=== PATIENT | female | born 1960 | race Caucasian/White ===

== ENCOUNTER 2021-10-09 19:00 | Inpatient (IN) | payer BC, SELFPAY ==
--- NOTE | ~2021-10-09 | XR_ITS ---
EXAMINATION: XR chest 1V portable 10/09/2021 19:43 INDICATION: Dyspnea and weakness. COPD. PROCEDURE: AP portable chest COMPARISON: 03/31/2018 FINDINGS: The lungs are clear. The cardiomediastinal silhouette is within normal limits. There are no pleural effusions. There is no pneumothorax suspected. There is a healed left eighth rib fractur e. There are emphysematous changes. There is a right shoulder arthroplasty. IMPRESSION: 1: NO ACUTE CARDIOPULMONARY DISEASE. Reviewed, dictated and finalized at location A. GN DIRECTOR
--- NOTE | ~2021-10-09 | CT_ITS ---
EXAMINATION: CTA chest PE protocol DATE: 10/09/2021 20:51 HEAD WORKER INDICATION: Shortness of breath and weakness TECHNIQUE: Computed tomographic angiography (CTA) of the chest was performed with 100 mL Omnipaque-35 0 intravenous contrast. The dose-length product was 147.69 mGy-cm. Maximum intensity projection 3D-re constructions of the aorta and other arteries were constructed by the technologist on a separate work station. Automated exposure control and iterative reconstruction technique were employed. COMPARISON: CT dated 07/12/2017. FINDINGS: Study is technically adequate. There are small filling defects in right upper lobe segmenta l pulmonary arteries, small thrombus burden. No thoracic lymphadenopathy. No significant pleural or p ericardial effusion. Heart size normal. No evidence for aortic aneurysm or dissection. No significant pleural or pericardial effusion. There is severe emphysema. There is a 7 mm fissural nodule on the r ight. There are scattered areas of groundglass opacification of the lower lungs. No endobronchial les ions. There is mucous plugging and multiple peripheral bronchi of the right middle lobe. There is mil d superior endplate compression deformity of T12 and L1 with Schmorl's nodes, likely chronic findings . No acute osseous abnormality. IMPRESSION: 1. Filling defects in right upper lobe segmental pulmonary arteries consistent with pulmonary embolis m, small thrombus burden. 2: Scattered groundglass opacification of the lower lungs, most likely infectious/inflammatory. Muco us plugging noted in peripheral right middle lobe bronchi. 3: Fissural nodule of the right middle lobe measuring 7 mm, likely benign. Follow-up low dose CT ches t and 12 months recommended. 4: Severe emphysema. Reviewed, dictated and finalized at location A. WORKER IMPRESSION: 1. Filling defects in right upper lobe segmental pulmonary arteries consistent with pulmonary embolism, small thrombus burden. 2: Scattered groundglass opacification of the lower lungs, most likely infecti ous/inflammatory. Mucous plugging noted in peripheral right middle lobe bronchi . 3: Fissural nodule of the right middle lobe measuring 7 mm, likely benign. Foll ow-up low dose CT chest and 12 months recommended. 4: Severe emphysema.
[2021-10-09 19:14] VITALS: BP 139/88; PULSE 130; RESP 28; TEMP 37.7; O2SAT 94
--- NOTE | 2021-10-09 19:28 | ECG_ITS ---
Measurements Intervals [place] Rate: 122 P: 77 HI: 146 QRS: 65 QRSD: 88 T: 70 QT: 312 QTc: 446 Interpretive Statements SINUS TACHYCARDIA INCOMPLETE RIGHT BUNDLE BRANCH BLOCK BORDERLINE ST ABNORMALITY- INF/LAT LEADS ABNORMAL ECG Electronically Signed On 10-09-2021 20:28:38 CNA PER DIEM by Varghese Martinez D.O.
[2021-10-09 19:51] LABS: Base Excess ABG 0.6 mmol/L (0-2); HCO3 ABG 24.1 mmol/L (23-29); Oxygen Content ABG 20.8 %vol (16.0-22.0); Oxygen Saturation ABG 93.8 % (95-97); Oxyhemoglobin 91.3 % (94-100); PCO2 ABG 35.8 mmHg (35-45); PO2 ABG 63.7 mmHg (80-90); Total Hemoglobin 16.2 g/dL (12.0-18.0); pH ABG 7.45 (7.35-7.45)
[2021-10-09 19:53] LABS: Basophils Absolute Auto 0.05 K/mm3 (0.00-0.10); Basophils Percent Auto 0.3 % (0.0-1.0); Eosinophils Absolute Auto 0.08 K/mm3 (0.02-0.50); Eosinophils Percent Auto 0.5 % (1.0-6.0); Hematocrit 47.8 % (35.0-49.0); Hemoglobin 16.1 g/dL (12.0-15.0); Immature Granulocyte Absolute 0.09 K/mm3 (0.00-0.00); Immature Granulocyte Percent A 0.6 % (0.0-0.0); Lymphocytes Percent Auto 11.3 % (18.0-42.0); Mean Corpuscular HGB Conc 33.7 g/dL (32.0-36.0); Mean Corpuscular Hemoglobin 31.6 pg (27.0-31.0); Mean Corpuscular Volume 93.9 fL (78.0-102.0); Mean Platelet Volume 9.4 fl (9.2-11.8); Monocytes Absolute Auto 1.39 K/mm3 (0.10-0.90); Monocytes Percent Auto 9.2 % (2.0-11.0); Neutrophils Absolute Auto 11.8 K/mm3 (1.7-7.2); Neutrophils Percent Auto 78.1 % (50.0-70.0); Platelet Count Result 258 K/mm3 (150-420); Red Blood Count 5.09 M/mm3 (4.20-5.40); Red Cell Distribution Width 14.4 % (11.6-14.4); White Blood Count 15.1 K/mm3 (4.8-10.8)
[2021-10-09 20:04] LABS: Device ROOM AIR; Modified Allen's Test Pass; Site Drawn LEFT RADIAL
[2021-10-09] MEDS: SODIUM CHLORIDE 0.9% IV 1,000 ML 999 ML IV CONT (20:20)
[2021-10-09 20:22] LABS: D Dimer 0.84 mg/L (0.19-0.50)
[2021-10-09 20:23] LABS: Alanine Aminotransferase 15 U/L (14-59); Albumin Level 3.8 g/dL (3.4-5.0); Alkaline Phosphatase 143 U/L (46-116); Anion Gap 10 mmol/L (8-16); Aspartate Amino Transferase 14 U/L (15-37); Bilirubin,Total 0.7 mg/dL (0.00-1.00); Blood Urea Nitrogen 8 mg/dL (7-18); Calcium 9.1 mg/dL (8.5-10.1); Carbon Dioxide 26 mmol/L (21-32); Chloride 103 mmol/L (98-108); Estimated Glomerular Filt Rate > 60; Glucose 114 mg/dL (70-99); NT Pro B Type Natriuretic Pept 100 pg/mL (0-125); Osmolality Calculated 287 mOsm/kg (285-295); Potassium 3.7 mmol/L (3.5-5.1); Sodium 139 mmol/L (136-145); Total Protein 7.6 g/dL (6.4-8.2); Troponin I 4.8 ng/L (0.00-60.4)
[2021-10-09 20:34] LABS: Influenza A QL RT-PCR Negative (Negative); Influenza B QL RT-PCR Negative (Negative); SARS-CoV-2 RNA PCR Negative (Negative)
[2021-10-09] MEDS: IPRATROPIUM 0.5 MG/ALBUTEROL SULFATE 2.5 MG AMPUL.NEB 3 ML INHALATION (21:00)
--- NOTE | 2021-10-09 21:04 | ED.URI ---
HPI - URI/Sore Throat General Chief Complaint: Upper Respiratory Infection Stated Complaint: body aches, cough, congestion Source: patient Mode of arrival: ambulatory Limitations: no limitations History of Present Illness HPI Narrative: this is a 60-year-old female with a history of COPD presents with some dyspnea shortness of breath with cough no fever has been having shortness of breath over the past few days and getting worse patient has a low-grade temperature of 100 with some heart rate in the 1 teens to 130s, with no nausea vomiting cough is nonproductive patient is a long-time tobacco abuser with no chest pain no belly pain no dysuria no flank pain. MD elicited complaint: cough and other ( dyspnea) Onset (ago): day(s) Consistency: constant Severity: moderate Description of mucous: clear Related Data Home Medications Medication Instructions Recorded Confirmed albuterol sulfate [Ventolin HFA] 2 inh INHALATION DIRECTED 10/09/21 10/09/21 budesonide-formoterol [Symbicort] 1 inh INHALATION BID 10/09/21 10/09/21 [id number] 1 ea INHALATION DAILY 10/09/21 10/09/21 [Trelegy Ellipta] gabapentin 300 mg PO TID 10/09/21 10/09/21 naproxen 500 mg PO DAILY 10/09/21 10/09/21 ropinirole 0.5 mg PO DAILY 10/09/21 10/09/21 venlafaxine 75 mg PO BID 10/09/21 10/09/21 Allergies Allergy/AdvReac Type Severity Reaction Status Date / Time acetaminophen Allergy Intermediate Hives Verified 10/09/21 19:35 [Tylenol-Codeine] codeine [Tylenol-Codeine] Allergy Intermediate Hives Verified 10/09/21 19:35 Review of Systems Review of Systems: All systems reviewed & are unremarkable except as noted in HPI and below PMFSH Past Medical History Medical History COPD (chronic obstructive pulmonary disease) Exam Const: General: no acute distress Orientation/consciousness: patient oriented x3 HENMT: Head: normal to inspection Eyes: Conjunctivae: conjunctivae normal Pupils: Equal, round and reactive pupils present Neck: Neck: normal visual inspection and no lymphadenopathy Chest: Chest palpation & inspection: normal inspection of the chest Resp: Effort & Inspection: normal respiratory effort Auscultation: diminished lung sounds Cardio: Rate: regular rate Rhythm: regular rhythm GI: GI Palp: Yes Soft to palpation : General: Yes no CVA tenderness Urinary Catheter: Urinary Catheter: patent and draining Skin: General skin exam: normal color Rashes: no rashes Neuro: General: patient oriented x3 and moves all extremities Psych: Mental Status: mental status grossly normal Affect: normal affect Course Course Emergency Course: patient here with some shortness of breath x-ray reviewed with patient patient had an elevated D-dimer and CTA was performed [facility] shows no P, labs reviewed with patient x-ray shows some hyperinflation and patient received DuoNebs and IV Solu-Medrol and a g of Rocephin and will admit. Vital Signs Vital signs: Vital Signs Temperature 37.7 C H 10/09/21 19:14 Pulse Rate 130 H 10/09/21 19:14 Respiratory Rate 28 H 10/09/21 19:14 Blood Pressure 139/88 10/09/21 19:14 Pulse Oximetry 94 10/09/21 19:14 Temperature 37.7 C H 10/09/21 19:14 Pulse Rate 130 H 10/09/21 19:14 Respiratory Rate 28 H 10/09/21 19:14 Blood Pressure 139/88 10/09/21 19:14 Pulse Oximetry 94 10/09/21 19:14 MDM - URI/Sore Throat Lab Data Result diagrams: 10/09/21 19:48 10/09/21 19:48 Labs: Lab Results 10/09/21 10/09/21 10/09/21 Range/Units 19:48 19:48 19:48 WBC (4.8-10.8) K/mm3 RBC (4.20-5.40) M/mm3 Hgb (12.0-15.0) g/dL Hct (35.0-49.0) % MCV (78.0-102.0) fL MCH (27.0-31.0) pg MCHC (32.0-36.0) g/dL RDW (11.6-14.4) % Plt Count (150-420) K/mm3 MPV (9.2-11.8) fl Immature Gran % (Auto) (0.0-0.0) % Neut % (Auto) (50.0-70.0) % Lymph % (
[2021-10-09] MEDS: methylPREDNISolone SOD SUCC 125 MG VIAL IV PUSH (21:06)
[2021-10-09 21:09] VITALS: PULSE 102; RESP 20; O2SAT 96
[2021-10-09 21:59] VITALS: BP 147/81; PULSE 114; RESP 22; TEMP 36.9; O2SAT 97
[2021-10-09 22:00] VITALS: O2SAT 96
[2021-10-09] MEDS: SODIUM CHLORIDE 0.9% IV 1,000 ML 100 ML IV CONT (22:04)
[2021-10-09] MEDS: ENOXAPARIN 30 MG/0.3 ML SYRINGE SUB-Q (22:12)
[2021-10-09] MEDS: VENLAFAXINE HCL 75 MG TABLET PO (22:12)
[2021-10-09] MEDS: GABAPENTIN 300 MG CAPSULE PO (22:12)
[2021-10-09 22:29] VITALS: BP 131/68; PULSE 102; RESP 20; TEMP 36.4; O2SAT 96
[2021-10-09 22:42] VITALS: BMI 20.5
[2021-10-10] VITALS (8 sets, daily range): BP systolic 112–134; BP diastolic 66–73; PULSE 88–102; RESP 16–20; TEMP 36.4–36.6; O2SAT 92–99
[2021-10-10] MEDS: methylPREDNISolone SOD SUCC 40 MG VIAL IV PUSH ×2 (00:02→05:45)
[2021-10-10] MEDS: IPRATROPIUM 0.5 MG/ALBUTEROL SULFATE 2.5 MG AMPUL.NEB 3 ML INHALATION ×2 (00:02→05:37)
[2021-10-10 05:43] LABS: Basophils Absolute Auto 0.01 K/mm3 (0.00-0.10); Basophils Percent Auto 0.1 % (0.0-1.0); Hemoglobin 14.4 g/dL (12.0-15.0); Immature Granulocyte Absolute 0.07 K/mm3 (0.00-0.00); Immature Granulocyte Percent A 0.6 % (0.0-0.0); Lymphocytes Absolute Auto 0.73 K/mm3 (1.10-4.50); Lymphocytes Percent Auto 6.6 % (18.0-42.0); Mean Corpuscular Hemoglobin 30.6 pg (27.0-31.0); Mean Corpuscular Volume 95.7 fL (78.0-102.0); Mean Platelet Volume 9.7 fl (9.2-11.8); Monocytes Absolute Auto 0.12 K/mm3 (0.10-0.90); Monocytes Percent Auto 1.1 % (2.0-11.0); Neutrophils Absolute Auto 10.2 K/mm3 (1.7-7.2); Neutrophils Percent Auto 91.6 % (50.0-70.0); Platelet Count Result 233 K/mm3 (150-420); Red Cell Distribution Width 14.6 % (11.6-14.4); White Blood Count 11.1 K/mm3 (4.8-10.8)
[2021-10-10] MEDS: GABAPENTIN 300 MG CAPSULE PO (05:45)
[2021-10-10 05:59] LABS: Alanine Aminotransferase 14 U/L (14-59); Albumin Level 3.2 g/dL (3.4-5.0); Alkaline Phosphatase 132 U/L (46-116); Anion Gap 10 mmol/L (8-16); Aspartate Amino Transferase 12 U/L (15-37); Bilirubin,Total 0.3 mg/dL (0.00-1.00); Blood Urea Nitrogen 10 mg/dL (7-18); Calcium 8.5 mg/dL (8.5-10.1); Carbon Dioxide 27 mmol/L (21-32); Chloride 105 mmol/L (98-108); Estimated CRCL calculation 46 ml/min; Estimated Glomerular Filt Rate > 60; Glucose 164 mg/dL (70-99); Osmolality Calculated 297 mOsm/kg (285-295); Potassium 3.8 mmol/L (3.5-5.1); Sodium 142 mmol/L (136-145); Total Protein 6.3 g/dL (6.4-8.2)
[2021-10-10] MEDS: NICOTINE (*PBKC) 21 MG PATCH 1 PATCH TRANSDERM (07:54)
[2021-10-10] MEDS: NAPROXEN 250 MG TABLET 500 MG PO (08:11)
[2021-10-10] MEDS: rOPINIRole HCL 0.5 MG TABLET PO (08:11)
[2021-10-10] MEDS: VENLAFAXINE HCL 75 MG TABLET PO (08:11)
[2021-10-10] MEDS: ENOXAPARIN 60 MG/0.6 ML SYRINGE 50 MG SUB-Q (08:58)
[2021-10-10] MEDS: FLUTICASONE/UMECLIDIN/VILANTER 100-62.5-25 MCG ELLIPTA 1 PUFF INHALATION (09:08)
--- NOTE | 2021-10-10 09:19 | PM.SD2 ---
Same Day Admit/Disch: HPI History of Present Illness Chief complaint: COPD exacerbation Narrative: Pippa Webb is a 60 year old female that presented to MR department with complaints of shortness of breath, cough and postnasal dripping. Patient has a past medical history of COPD patient notes for the last couple of days she has experienced coughing that is nonproductive along with postnasal dripping and congestion and shortness of breath. Patient notes that her shortness became so bad that she had to come to our emergency department. Patient notes that her condition has improved since her admission she is on room air satting in the lower 90s which is her baseline. Patient does not use. WBCs 11 hemoglobin 14.4 hematocrit 25 platelets 233 sodium 142 potassium 3.8 BUN 10 creatinine 0.85 glucose 164 lactic acid 1.0 AST 14 ALT 15 troponin 4.8 BNP 100 D-dimer 0.84 CTA indicates PE also pneumonia with mucous plugging severe emphysema, EKG sinus tach with a heart rate of 122, vital signs 98, 88, 18, 92% on room air ,134/66. Patient will discharge and be treated for a PE along with pneumonia FORMERLY [facility], [facility]–1983 Past Medical History Medical History COPD (chronic obstructive pulmonary disease) Social History Social History Smoking packs per day: 0.5 Smoking cigarettes per day: 10.0 Smoking status: Current every day smoker Tobacco type: cigarettes Second hand tobacco smoke exposure: Yes Alcohol intake: never Substance use: never Spiritual care concerns: No Same Day Admit/Disch: Med Pre-admit Medications Home Medications Medication Instructions Recorded Confirmed Type Sony Joyashonna 1 ea INHALATION DAILY 10/09/21 10/09/21 History albuterol sulfate [Ventolin HFA] 2 inh INHALATION DIRECTED 10/09/21 10/09/21 History budesonide-formoterol [Symbicort] 1 inh INHALATION BID 10/09/21 10/09/21 History gabapentin 300 mg PO TID 10/09/21 10/09/21 History naproxen 500 mg PO DAILY 10/09/21 10/09/21 History ropinirole 0.5 mg PO DAILY 10/09/21 10/09/21 History venlafaxine 75 mg PO BID 10/09/21 10/09/21 History apixaban [Eliquis] 5 mg PO BID #90 tablet 10/10/21 Rx azithromycin 500 mg PO DAILY 10 Days #10 tablet 10/10/21 Rx benzonatate 200 mg PO BID PRN #90 cap 10/10/21 Rx cefdinir 300 mg PO Q12H 10 Days #20 cap 10/10/21 Rx fluticasone propionate [Flonase 1 spray INTRANASAL BID #16 g 10/10/21 Rx Allergy Relief] guaifenesin 400 mg PO QID 21 Days #84 tablet 10/10/21 Rx methylprednisolone [Methylpred DP] 4 mg PO DAILY #21 ea 10/10/21 Rx Exam Narrative: GENERAL: This is a well-nourished, well-developed patient, in no apparent distress. HEAD: normocephalic, atraumatic. EYES: PERRL. Sclera clear/white. Vision is grossly intact. EARS: External ears normal, auditory canals clear and without drainage, TMs normal without perforation. Hearing grossly intact. NOSE: External nose normal with no obvious nasal discharge, nares without redness, no rhinorrhea. THROAT: Mucous membranes moist, posterior pharynx clear. NECK: Neck supple, non-tender without lymphadenopathy, masses or thyromegaly. CARDIOVASCULAR: Regular rate and rhythm without murmurs, gallops, or rubs. RESPIRATORY: Clear to auscultation. Breath sounds equal bilaterally. No wheezes, rales, or rhonchi. GASTROINTESTINAL: Abdomen soft, non-tender, nondistended. Bowel sounds are active. No hepato-splenomegaly, or palpable masses. No guarding. SKIN: warm, intact with no suspicious lesions or rash, good texture and turgor. NEURO: awake, alert, and oriented to person, place and time. There were no obvious focal neurologic abnormalities. Steady gait EXTREMITIES: Normal range of motion. No edema. No calf tenderness. Negative Homans sign bilaterally. BACK: Nontender without deformity or crepitance. No flank tenderness. DS: Data Data Completed and Pending Labs on day of discharge: Labs from
--- NOTE | 2021-10-10 12:31 | PC.NURSE ---
1130 patient dc to . instructions went over. both her and vocalize an understanding. dc to personal auto.
--- NOTE | 2021-10-14 14:13 | PC.NURSE ---
Pt states she received and understood her discharge instructions. Pt has no other comments.
== END 2021-10-10 11:30 | disposition home or self-care (01) | DRG 190 ==
LOC: CHSED 21:07 → CHS2ND 21:32
PROVIDERS: Admitting Provider Emergency Medicine; Emergency Provider Emergency Medicine; PCP Family Medicine; Visit Provider Emergency Medicine
DX: J44.0 Chronic obstructive pulmonary disease with (acute) lower respiratory infection (principal); Z20.822 Contact with and (suspected) exposure to COVID-19; I26.99 Other pulmonary embolism without acute cor pulmonale; J18.9 Pneumonia, unspecified organism; F17.210 Nicotine dependence, cigarettes, uncomplicated
CPT/HCPCS: 36415; 36600; 71045; 71275; 80053; 82805; 83605; 83880; 84484; 85025; 85380; 87040; 87081; 87502; 87880; 93005; 94640; 96361; 96374; 99285; A9270; C9803; J0456; J0696; J1650; J2920; J2930; J7030; Q9967; U0003; U0005

== ENCOUNTER 2021-12-11 00:40 | Emergency (ER) | payer BC, SELFPAY ==
[2021-12-11 00:43] VITALS: PULSE 89; RESP 20; TEMP 36.7; O2SAT 95
--- NOTE | 2021-12-11 00:43 | ED.GENADULT ---
HPI - General Adult General Chief complaint: Unspecified Stated complaint: Lump on left arm Time Seen by Provider: 12/11/21 00:43 Source: patient and RN notes reviewed Mode of arrival: ambulatory Limitations: no limitations History of Present Illness HPI narrative: Patient had her 1st COVID vaccination in her left arm this morning. Then she had a knot in her left shoulder at the the injection site. Then she began having swelling under her left arm in the axilla which was also painful. She called her doctor's office but they did not have a good explanation for. complaint: pain and swelling in left axilla Onset (ago): hour(s) (12) Location: upper extremity ( left axilla) Radiation: non-radiation Quality: aching, dull and constant Pain Consistency: constant Relieving factors: none Exacerbating factors: movement ( Left arm) Associated symptoms: denies other symptoms Treatments prior to arrival: none Related Data Home Medications Medication Instructions Recorded Confirmed Trelegy Ellipta 1 ea INHALATION DAILY 10/09/21 12/11/21 albuterol sulfate [Ventolin HFA] 2 inh INHALATION DIRECTED 10/09/21 12/11/21 budesonide-formoterol [Symbicort] 1 inh INHALATION BID 10/09/21 12/11/21 gabapentin 300 mg PO TID 10/09/21 12/11/21 naproxen 500 mg PO DAILY 10/09/21 12/11/21 ropinirole 0.5 mg PO DAILY 10/09/21 12/11/21 venlafaxine 75 mg PO BID 10/09/21 12/11/21 Allergies Allergy/AdvReac Type Severity Reaction Status Date / Time acetaminophen Allergy Intermediate Hives Verified 10/09/21 19:35 [Tylenol-Codeine] codeine [Tylenol-Codeine] Allergy Intermediate Hives Verified 10/09/21 19:35 Review of Systems Review of Systems: All systems reviewed & are unremarkable except as noted in HPI and below PMFSH Past Medical History Medical History (Updated 12/11/21 @ 00:56 by Tima Cerda MD) COPD (chronic obstructive pulmonary disease) Pulmonary emboli Surgical History Surgical History (Updated 12/11/21 @ 00:55 by Tima Cerda MD) H/O shoulder replacement right Social History Social History Smoking packs per day: 0.5 Smoking cigarettes per day: 10.0 Smoking status: Current every day smoker Tobacco type: cigarettes Second hand tobacco smoke exposure: Yes Alcohol intake: never Substance use: never Spiritual care concerns: No Exam Const: General: healthy appearing and no acute distress Nutritional Appearance: well nourished Orientation/consciousness: patient oriented x3 HENMT: Head: normal to inspection Ears: external ears normal Eyes: Conjunctivae: conjunctivae normal Pupils: Equal, round and reactive pupils present EOM: EOMs intact bilaterally Neck: Neck: normal visual inspection Resp: Effort & Inspection: normal respiratory effort Auscultation: clear to auscultation bilaterally Cardio: Rate: regular rate Rhythm: regular rhythm GI: GI Palp: Yes Soft to palpation and No Tenderness to palpation present (GI) Auscultation: normal bowel sounds Back/Spine/Pelvis: Cervical Spine: cervical ROM normal Thoracic/Lumbar Spine: thoraco-lumbar ROM normal Skin: General skin exam: normal color, no rashes or lesions noted and turgor normal Other: Swelling noted under the left axilla with tender lymphadenopathy. Lymph node is freely mobile soft no overlying erythema. Neuro: General: patient oriented x3, moves all extremities, no meningeal signs, no focal motor deficits and CN's II-XI intact bilaterally Speech: normal speech Gait exam (Neuro): Normal gait present Extrem: General: normal to inspection and no clubbing, cyanosis or edema Psych: Appearance: grossly normal and well kempt Mental Status: mental status grossly normal Affect: normal affect Attitude: cooperative Thought content: Yes Normal thought content present Course Vital Signs Vital signs: Vital Signs Temperature 36.7 C 12/11/21 00:43 Pulse Rate 89 12/11/21 00:4
[2021-12-11] MEDS: IBUPROFEN 600 MG TABLET (00:50)
[2021-12-11 01:04] VITALS: PULSE 80; RESP 18; TEMP 36.6; O2SAT 95
== END 2021-12-11 01:05 | disposition home or self-care (01) ==
PROVIDERS: Emergency Provider Emergency Medicine
DX: I88.9 Nonspecific lymphadenitis, unspecified (principal)
CPT/HCPCS: 99282; A9270

== ENCOUNTER 2022-04-07 13:07 | Emergency (ER) | payer BC, SELFPAY ==
[2022-04-07 13:40] VITALS: BP 157/84; PULSE 94; RESP 18; TEMP 37.1; O2SAT 94
--- NOTE | 2022-04-07 14:44 | ED.GENADULT ---
HPI - General Adult General Chief complaint: Skin/Abscess/Foreign Body Stated complaint: RASH HEAD UPPER EXTREMITIES Time Seen by Provider: 04/07/22 14:44 History of Present Illness HPI narrative: The patient is a 61-year-old woman with history of COPD, pneumonia, pulmonary embolus. She has pets at home but no fleas. For the last 3 days, the patient has had a rash on both forearms, worse on the right, with different areas that are itchy with redness around them. No vesicles. She does not believe that she has been bit by mosquitoes. She has applied hydrocortisone cream and calamine lotion to those areas. She also has itchiness in the scalp region. No itching the torso or lower extremities or face. The rash on both forearms is itchy. She has not taken any oral medications for the rash. No difficulty breathing. No fevers or chills or diaphoresis. No cough rhinorrhea or nasal congestion. No nausea vomiting or abdominal pain or urinary symptoms. No previous similar rash. No bedbugs at the present time but she has had those in the past. Related Data Home Medications Medication Instructions Recorded Confirmed albuterol sulfate 90 mcg/actuation 2 inh inhalation DIRECTED 10/09/21 12/11/21 aerosol inhaler (Ventolin HFA) budesonide-formoterol HFA 160 1 inh inhalation BID 10/09/21 12/11/21 mcg-4.5 mcg/actuation aerosol inhaler (Symbicort) fluticasone fur. 100 mcg-umeclid 1 ea inhalation DAILY 10/09/21 12/11/21 62.5 mcg-vilant 25 mcg inhalat.powder (Trelegy Ellipta) gabapentin 300 mg capsule 300 mg PO TID 10/09/21 12/11/21 naproxen 500 mg tablet 500 mg PO DAILY 10/09/21 12/11/21 ropinirole 0.5 mg tablet 0.5 mg PO DAILY 10/09/21 12/11/21 venlafaxine 75 mg tablet 75 mg PO BID 10/09/21 12/11/21 Allergies Allergy/AdvReac Type Severity Reaction Status Date / Time acetaminophen Allergy Intermediate Hives Verified 10/09/21 19:35 [Tylenol-Codeine] codeine [Tylenol-Codeine] Allergy Intermediate Hives Verified 12/16/21 19:35 Review of Systems Review of Systems: All systems reviewed & are unremarkable except as noted in HPI and below Constitutional: Constitutional: Reports no additional constitutional complaints, Denies anorexia, Denies body ache(s), Denies chills, Denies excessive sweating, Denies fatigue, Denies fever(s), Denies frequent falls, Denies headache(s), Denies malaise and Denies poor appetite Eyes: Eyes: Reports no additional eye complaints, Denies blurry vision, Denies change in vision, Denies irritation, Denies itchy eyes and Denies photophobia ENT: Reports system reviewed and no additional complaints, except as documented, Reports Normal hearing present, Denies change in voice, Denies dysphagia, Denies vertigo, Denies dizziness, Denies ear discharge, Denies headache(s), Denies hearing loss, Denies hoarseness, Denies nasal congestion, Denies neck pain, Denies sinus pressure, Denies sore throat and Denies throat swelling Cardiovascular: Cardiovascular: Reports no additional cardiovascular complaints, Denies chest pain, Denies syncope, Denies rapid heart rate, Denies irregular heart rhythm, Denies leg edema, Denies dyspnea and Denies slow heart rate Respiratory: Respiratory: Reports no additional respiratory complaints, Denies cough, Denies dyspnea, Denies stridor and Denies wheezing Gastrointestinal: Gastrointestinal: Reports no additional gastrointestinal complaints, Denies abdominal pain, Denies melena, Denies hematochezia, Denies dysphagia, Denies diarrhea, Denies nausea and Denies vomiting Genitourinary: Genitourinary: Denies hematuria, Denies urinary frequency, Denies dysuria, Denies flank pain and Denies urinary urgency Musculoskeletal: Musculoskeletal: Reports no additional musculoskeletal complaints, Denies abnormal gait, Denies back pain, Denies myalgias, Denies arthralgias, Denies joint swelling, Denies limited range of motion, Denies muscle cramps, Denies muscle weakness, Denies neck pain an
[2022-04-07] MEDS: ACETAMINOPHEN 325 MG TABLET 650 MG PO (14:50)
[2022-04-07] MEDS: CEPHALEXIN 500 MG CAPSULE PO (14:50)
[2022-04-07] MEDS: hydrOXYzine HCL 25 MG TABLET 50 MG PO (14:51)
[2022-04-07] MEDS: predniSONE 20 MG TABLET 60 MG PO (14:51)
[2022-04-07 15:15] VITALS: BP 156/84; PULSE 91; RESP 18; TEMP 36.9; O2SAT 94
== END 2022-04-07 15:18 | disposition home or self-care (01) ==
PROVIDERS: Emergency Provider Emergency Medicine; PCP Family Medicine
DX: L30.9 Dermatitis, unspecified (principal)
CPT/HCPCS: 99283; A9270; J7512

== ENCOUNTER 2022-06-25 01:23 | Emergency (ER) | payer BC, SELFPAY ==
--- NOTE | ~2022-06-25 | XR_ITS ---
EXAMINATION: XR foot RT 2V DATE: 06/25/2022 01:41 INDICATION: Right second toe injury. TECHNIQUE: 2 views of right foot were obtained. COMPARISON: None. FINDINGS: Bone alignment is normal. There is a fracture of dorsal base of second distal phalanx with less than 1 mm displacement. There are old healed fractures of the diaphyses of second and third prox imal phalanges and third metatarsal. 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 There is an enthesophyte at posterior aspect of calcaneal tuberosity. IMPRESSION: 1. Fracture of dorsal base of second distal phalanx. Reviewed, dictated and finalized at location A.
[2022-06-25 01:35] VITALS: BP 138/86; PULSE 82; RESP 16; TEMP 36.6; O2SAT 97
--- NOTE | 2022-06-25 02:05 | ED.LOWEXIN ---
HPI - Extremity Injury (Lower) General Chief Complaint: Extremity Injury, Lower Stated Complaint: Toe pain Source: patient and RN notes reviewed Mode of arrival: ambulatory Limitations: no limitations History of Present Illness HPI Narrative: Patient states that she slipped on the carpet consequently striking some piece of furniture in her house. Now it is swollen on the distal 2nd right toe with bruising. complaint: foot injury Onset (ago): day(s) (1) Injury: Right: toes (2nd) Type of Injury: blunt Place: home Severity: moderate Relieving factors: nothing Exacerbating factors: movement and palpation Context: direct blow Associated symptoms: snap/pop sensation, swelling and ambulatory Other symptoms: none Related Data Home Medications Medication Instructions Recorded Confirmed albuterol sulfate 90 mcg/actuation 2 inh inhalation DIRECTED 10/09/21 06/25/22 aerosol inhaler (Ventolin HFA) budesonide-formoterol HFA 160 1 inh inhalation BID 10/09/21 06/25/22 mcg-4.5 mcg/actuation aerosol inhaler (Symbicort) fluticasone fur. 100 mcg-umeclid 1 ea inhalation DAILY 10/09/21 06/25/22 62.5 mcg-vilant 25 mcg inhalat.powder (Trelegy Ellipta) naproxen 500 mg tablet 500 mg PO DAILY 10/09/21 06/25/22 ropinirole 0.5 mg tablet 0.5 mg PO DAILY 10/09/21 06/25/22 venlafaxine 75 mg tablet 75 mg PO BID 10/09/21 06/25/22 gabapentin 300 mg capsule 300 mg PO DAILY 06/25/22 06/25/22 Allergies Allergy/AdvReac Type Severity Reaction Status Date / Time acetaminophen Allergy Intermediate Hives Verified 10/09/21 19:35 [Tylenol-Codeine] codeine [Tylenol-Codeine] Allergy Intermediate Hives Verified 10/09/21 19:35 Review of Systems Review of Systems: All systems reviewed & are unremarkable except as noted in HPI and below PMFSH Past Medical History Medical History (Updated 06/25/22 @ 02:10 by Tima Cerda MD) COPD (chronic obstructive pulmonary disease) Pulmonary emboli Restless legs syndrome Surgical History Surgical History H/O shoulder replacement right Social History Social History Smoking packs per day: 0.5 Smoking cigarettes per day: 10.0 Smoking status: Current every day smoker Tobacco type: cigarettes Second hand tobacco smoke exposure: Yes Alcohol intake: never Substance use: never Spiritual care concerns: No Exam Const: General: healthy appearing, no acute distress and alert Nutritional Appearance: well nourished Orientation/consciousness: patient oriented x3 Limitations: no limitations HENMT: Head: normal to inspection Ears: external ears normal Face and sinus: normal facial exam Eyes: Conjunctivae: conjunctivae normal Pupils: Equal, round and reactive pupils present EOM: EOMs intact bilaterally Neck: Neck: normal visual inspection Resp: Effort & Inspection: normal respiratory effort Auscultation: clear to auscultation bilaterally Cardio: Rate: regular rate Rhythm: regular rhythm GI: GI Palp: Yes Soft to palpation and No Tenderness to palpation present (GI) Auscultation: normal bowel sounds Back/Spine/Pelvis: Cervical Spine: cervical ROM normal Thoracic/Lumbar Spine: thoraco-lumbar ROM normal Skin: General skin exam: normal color Rashes: no rashes Neuro: General: patient oriented x3, moves all extremities, no focal motor deficits and CN's II-XI intact bilaterally Speech: normal speech Gait exam (Neuro): Normal gait present Extrem: General: normal exam except as noted Left lower extremity: foot Details: tenderness Location: of another digit Location: the 2nd digit and at the distal phalanx, abnormal ROM of toe Details: pain with active ROM Location: of the 2nd digit and pain with passive ROM of the 2nd digit, ecchymosis dorsal 2nd toe single and vascular exam Details: normal capillary refill Psych: Mental Status: mental status grossly normal Affect:
[2022-06-25 02:19] VITALS: BP 133/81; PULSE 68; RESP 16; O2SAT 96
== END 2022-06-25 02:20 | disposition home or self-care (01) ==
PROVIDERS: Emergency Provider Emergency Medicine; PCP Family Medicine
DX: S92.534A Nondisplaced fracture of distal phalanx of right lesser toe(s), initial encounter for closed fracture (principal); W22.03XA Walked into furniture, initial encounter
CPT/HCPCS: 73620; 99284

== ENCOUNTER 2022-07-21 15:09 | Outpatient (CLI) | payer BC, SELFPAY ==
--- NOTE | ~2022-07-21 | XR_ITS ---
EXAMINATION: XR lumbar spine 2-3V, XR sacroiliac joints min 3V DATE: 07/21/2022 15:34 INDICATION: Right-sided sciatica TECHNIQUE: 1. Anteroposterior and lateral views of the lumbar spine, and cone-down lateral view of the lumbosacr al junction were obtained. 2. AP and left and right oblique views of the sacroiliac joints were obtained. COMPARISON: None. FINDINGS: Negligible lower lumbar levocurvature. Sagittal alignment is normal. Compression fracture with mild r ight-sided disc height loss at T11. Lumbar vertebral body heights are normal. Moderate to severe righ t-sided predominant disc height loss at L4-L5. Moderate disc height loss at L3-L4. Mild disc height l oss at L2-L3, L5-S1 and diffuse glandular thoracic levels.. Sacral arches are intact. Mild osteoarthr itis of the bilateral sacroiliac joints. No subarticular sclerosis or erosions to suggest inflammator y sacroiliitis. Visualized portions of the bilateral hip joint spaces are normal. Atherosclerotic abd ominal aorta. Visualized lung bases are clear. Heart size is normal. IMPRESSION: 1. Lumbar spondylosis most prominent at L4-5 to severe radius moderate to severe. 2. Mild bilateral sacroiliac osteoarthritis. No findings to suggest an inflammatory sacroiliitis. Reviewed, dictated and finalized at location A. IMPRESSION: 1. Lumbar spondylosis most prominent at L4-5 to severe radius moderate to sever e. 2. Mild bilateral sacroiliac osteoarthritis. No findings to suggest an inflamma tory sacroiliitis.
== END 2022-07-21 15:10 | disposition home or self-care (01) ==
LOC: CHSIMG 15:12
PROVIDERS: PCP Family Medicine; Visit Provider Family Medicine
DX: M54.31 Sciatica, right side (principal)
CPT/HCPCS: 72100; 72202

== ENCOUNTER 2022-09-08 13:02 | Emergency (ER) | payer BC, SELFPAY ==
--- NOTE | ~2022-09-08 | CT_ITS ---
EXAMINATION: CTA chest PE protocol DATE: 09/08/2022 14:30 INDICATION: Left-sided chest pain. Positive d-dimer. TECHNIQUE: Computed tomography angiography (CTA) of the chest was performed with 100 mL Omnipaque-350 intravenous contrast timed to evaluate the pulmonary arteries. Coronal maximum intensity projection 3D-reconstructions were created by the technologist. Automated exposure control and iterative reconst ruction technique were employed. Exam dose: 152.09 mGy-cm total exam DLP. COMPARISON: 09/08/2022 PA chest 10/09/2021 CT pulmonary scan FINDINGS: There is diagnostic contrast enhancement of the pulmonary arteries and no evidence of pulmo nary embolism. Normal heart size. No thoracic aortic aneurysm or dissection. No pericardial or pleural effusion. No hilar or mediastinal mass lesion or lymphadenopathy. Normal morphology of the adrenal glands. . There is bullous emphysema. No pulmonary consolidation. Diminished prominence of previously reporte d fissural nodule since 10/09/2021. Burst fracture deformity of T12 and prominent invagination of the superior vertebral endplate mild an terior wedging and mild loss of height of L1 IMPRESSION: Bullous emphysema No evidence of pulmonary embolism Stable fracture deformities of T12 and L1 Reviewed, dictated and finalized at [facility]. Reviewed, dictated and finalized at location A. FOREMAN
--- NOTE | ~2022-09-08 | XR_ITS ---
XR chest 1V DATE: 09/08/2022 14:05 INDICATION: Left chest wall pain TECHNIQUE: PA view COMPARISON: 10/09/2021 CT pulmonary scan 10/09/2021 portable AP chest FINDINGS: Bilateral hyperinflation consistent with COPD. Sparse upper lung markings consistent with b ullous change. No pulmonary infiltrate or consolidation, pleural effusion or pulmonary vascular conge stion or pneumothorax. Normal heart size. No hilar or mediastinal enlargement. Status post right glenohumeral arthroplasty. Old healed left sixth and eighth rib fractures. Osteopenia. IMPRESSION: Bullous emphysema No active cardiac pulmonary disease Old healed left rib fractures Reviewed, dictated and finalized at location A. 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
[2022-09-08 13:10] VITALS: BP 136/82; PULSE 84; RESP 16; TEMP 36.3; O2SAT 96
--- NOTE | 2022-09-08 13:14 | ED_ITS ---
HPI - Extremity Injury (Lower) General Stated Complaint: L side pain and knot on rib cage Time Seen by Provider: 09/08/22 13:12 Source: patient Mode of arrival: ambulatory Limitations: no limitations History of Present Illness HPI Narrative: 61-year-old female with a history of COPD, RLS, arthritis presents to the ER with Related Data Home Medications Medication Instructions Recorded Confirmed albuterol sulfate 90 mcg/actuation 2 inh inhalation DIRECTED 10/09/21 06/25/22 aerosol inhaler (Ventolin HFA) budesonide-formoterol HFA 160 1 inh inhalation BID 10/09/21 06/25/22 mcg-4.5 mcg/actuation aerosol inhaler (Symbicort) fluticasone fur. 100 mcg-umeclid 1 ea inhalation DAILY 10/09/21 06/25/22 62.5 mcg-vilant 25 mcg inhalat.powder (Trelegy Ellipta) naproxen 500 mg tablet 500 mg PO DAILY 10/09/21 06/25/22 ropinirole 0.5 mg tablet 0.5 mg PO DAILY 10/09/21 06/25/22 venlafaxine 75 mg tablet 75 mg PO BID 10/09/21 06/25/22 gabapentin 300 mg capsule 300 mg PO DAILY 06/25/22 06/25/22 Allergies Allergy/AdvReac Type Severity Reaction Status Date / Time acetaminophen Allergy Intermediate Hives Verified 10/09/21 19:35 [Tylenol-Codeine] codeine [Tylenol-Codeine] Allergy Intermediate Hives Verified 10/09/21 19:35 [facility] Past Medical History Medical History (Updated 06/26/22 @ 00:00 by Shawnee Daniel) COPD (chronic obstructive pulmonary disease) Pulmonary emboli Restless legs syndrome Surgical History Surgical History H/O shoulder replacement right Social History Social History Smoking packs per day: 0.5 Smoking cigarettes per day: 10.0 Smoking status: Current every day smoker Tobacco type: cigarettes Second hand tobacco smoke exposure: Yes Alcohol intake: never Substance use: never Spiritual care concerns: No Discharge Plan Discharge Prescriptions: No Action venlafaxine 75 mg tablet 75 mg PO BID ropinirole 0.5 mg tablet 0.5 mg PO DAILY albuterol sulfate [Ventolin HFA] 90 mcg/actuation HFA aerosol inhaler 2 inh INHALATION DIRECTED naproxen 500 mg tablet 500 mg PO DAILY budesonide-formoterol [Symbicort] 160-4.5 mcg/actuation HFA aerosol inhaler 1 inh INHALATION BID Trelegy Ellipta 100-62.5-25 mcg blister with device 1 ea INHALATION DAILY gabapentin 300 mg capsule 300 mg PO DAILY Follow-up/Referrals: Rick,MD Anil [Primary Care Provider] -
--- NOTE | 2022-09-08 13:18 | ED.CHESTPAIN ---
HPI - Chest Pain General Chief Complaint: Unspecified Stated Complaint: L side pain and knot on rib cage Time Seen by Provider: 09/08/22 13:12 Source: patient Mode of arrival: ambulatory Limitations: no limitations History of Present Illness HPI narrative: 61-year-old female smoker with history of COPD pulmonary diagnosed September of 2021, RLS presents to the ER with a 1 day history of -- left lower chest wall made worse by deep breathing and coughing. -- Cough mucopurulent sputum -- chronic shortness of MD complaint: chest pain Onset (ago): day(s) ( started yesterday) Timing of current episode: constant Onset: during rest Pain location: lateral Pain radiation: none Severity: moderate Quality: sharp Relieving factors: nothing Exacerbating factors: inspiration Treatment prior to arrival: none Risk Factors Coronary artery disease risk factors: smoking history Pulmonary embolism risk factors: history of pulmonary embolism Related Data On Oral Contraceptives: No Home Medications Medication Instructions Recorded Confirmed albuterol sulfate 90 mcg/actuation 2 inh inhalation DIRECTED 10/09/21 09/08/22 aerosol inhaler (Ventolin HFA) budesonide-formoterol HFA 160 1 inh inhalation BID 10/09/21 09/08/22 mcg-4.5 mcg/actuation aerosol inhaler (Symbicort) fluticasone fur. 100 mcg-umeclid 1 ea inhalation DAILY 10/09/21 09/08/22 62.5 mcg-vilant 25 mcg inhalat.powder (Trelegy Ellipta) naproxen 500 mg tablet 500 mg PO DAILY 10/09/21 09/08/22 ropinirole 0.5 mg tablet 0.5 mg PO DAILY 10/09/21 09/08/22 venlafaxine 75 mg tablet 75 mg PO BID 10/09/21 09/08/22 gabapentin 300 mg capsule 300 mg PO DAILY 06/25/22 09/08/22 Allergies Allergy/AdvReac Type Severity Reaction Status Date / Time acetaminophen Allergy Intermediate Hives Verified 09/08/22 13:27 [Tylenol-Codeine] codeine [Tylenol-Codeine] Allergy Intermediate Hives Verified 09/08/22 13:27 Review of Systems Review of Systems: All systems reviewed & are unremarkable except as noted in HPI and below Constitutional: Constitutional: Reports as per HPI and Reports no additional constitutional complaints Eyes: Eyes: Reports as per HPI and Reports no additional eye complaints ENT: Reports system reviewed and no additional complaints, except as documented and Reports as per HPI Cardiovascular: Cardiovascular: Reports as per HPI, Reports no additional cardiovascular complaints and Reports chest pain Comments: left lower chest wall pain made worse by deep breathing Respiratory: Respiratory: Reports as per HPI and Reports no additional respiratory complaints Gastrointestinal: Gastrointestinal: Reports as per HPI and Reports no additional gastrointestinal complaints Genitourinary: Genitourinary: Reports no additional female genitourinary complaints and Reports as per HPI Musculoskeletal: Musculoskeletal: Reports no additional musculoskeletal complaints and Reports as per HPI Integumentary/Breasts: Skin/Breast: Reports system reviewed and no additional complaints, except as docu and Reports as per HPI Neurologic: Reports system reviewed and no additional complaints, except as documented and Reports as per HPI Psychiatric: Psychiatric: Reports no additional psychiatric complaints and Reports as per HPI Endocrine: Endocrine: Reports no additional endocrine complaints and Reports as per HPI Hematologic/Lymphatic: Hematologic/Lymphatic: Reports no additional hematologic/lymphatic complaints and Reports as per HPI Allergic/Immunologic: Allergic/Immunologic: Reports no additional allergic/immunologic complaints and Reports as per HPI [facility] Past Medical History Medical History COPD (chronic obstructive pulmonary disease) Pulmonary emboli Restless legs syndrome Surgical History Surgical History H/O shoulder replacement right Social History Social
--- NOTE | 2022-09-08 13:23 | ECG_ITS ---
Measurements Intervals [place] Rate: 73 P: 73 CA: 151 QRS: 41 QRSD: 91 T: 63 QT: 384 QTc: 425 Interpretive Statements SINUS RHYTHM INCOMPLETE RIGHT BUNDLE BRANCH BLOCK CANNOT RULE OUT SEPTAL INFARCT, AGE INDETERMINATE ABNORMAL ECG COMPARED TO ECG 10/09/2021 19:53:25 SINUS RHYTHM NOW PRESENT Electronically Signed On 09-08-2022 13:41:09 [employer]ANCE [employer] by Varghese Martinez D.O.
[2022-09-08 13:40] LABS: Basophils Absolute Auto 0.07 K/mm3 (0.00-0.10); Basophils Percent Auto 1.1 % (0.0-1.0); Eosinophils Absolute Auto 0.17 K/mm3 (0.02-0.50); Eosinophils Percent Auto 2.8 % (1.0-6.0); Hematocrit 46.8 % (35.0-49.0); Hemoglobin 15.8 g/dL (12.0-15.0); Immature Granulocyte Absolute 0.01 K/mm3 (0.00-0.00); Immature Granulocyte Percent A 0.2 % (0.0-0.0); Lymphocytes Absolute Auto 2.81 K/mm3 (1.10-4.50); Lymphocytes Percent Auto 45.8 % (18.0-42.0); Mean Corpuscular HGB Conc 33.8 g/dL (32.0-36.0); Mean Corpuscular Volume 94.9 fL (78.0-102.0); Mean Platelet Volume 8.9 fl (9.2-11.8); Monocytes Absolute Auto 0.45 K/mm3 (0.10-0.90); Monocytes Percent Auto 7.3 % (2.0-11.0); Neutrophils Absolute Auto 2.6 K/mm3 (1.7-7.2); Neutrophils Percent Auto 42.8 % (50.0-70.0); Platelet Count Result 271 K/mm3 (150-420); Red Blood Count 4.93 M/mm3 (4.20-5.40); Red Cell Distribution Width 13.4 % (11.6-14.4); White Blood Count 6.1 K/mm3 (4.8-10.8)
[2022-09-08 13:55] LABS: D Dimer 0.51 mg/L (0.19-0.50)
--- NOTE | 2022-09-08 13:57 | PC.NURSE ---
spoke with Yadira in lab, who advised patient D-dimer elevated.
[2022-09-08] MEDS: KETOROLAC 30 MG/ML VIAL (*BKC) IM (14:04)
[2022-09-08 14:05] LABS: Anion Gap 8 mmol/L (8-16); Blood Urea Nitrogen 9 mg/dL (7-18); Carbon Dioxide 30 mmol/L (21-32); Chloride 103 mmol/L (98-108); Lactic Acid Reflex 1.1 mmol/L (0.4-2.0); Potassium 3.8 mmol/L (3.5-5.1); Sodium 141 mmol/L (136-145)
[2022-09-08 14:06] LABS: Alanine Aminotransferase 19 U/L (14-59); Aspartate Amino Transferase 18 U/L (15-37); Bilirubin,Total 0.5 mg/dL (0.00-1.00); Calcium 8.7 mg/dL (8.5-10.1); Estimated CRCL calculation 43 ml/min; Estimated Glomerular Filt Rate > 60; Glucose 103 mg/dL (70-99); Osmolality Calculated 290 mOsm/kg (285-295); Total Protein 7.5 g/dL (6.4-8.2)
[2022-09-08 14:07] LABS: Albumin Level 3.8 g/dL (3.4-5.0); Alkaline Phosphatase 147 U/L (46-116)
[2022-09-08 14:34] VITALS: BP 138/72; PULSE 77; RESP 18; O2SAT 96
== END 2022-09-08 15:23 | disposition home or self-care (01) ==
PROVIDERS: Emergency Provider Internal Medicine Critical Care Medicine; PCP Family Medicine
DX: S22.081A Stable burst fracture of T11-T12 vertebra, initial encounter for closed fracture (principal); S32.001A Stable burst fracture of unspecified lumbar vertebra, initial encounter for closed fracture; R07.89 Other chest pain
CPT/HCPCS: 36415; 71045; 71275; 80053; 83605; 84484; 85025; 85380; 93005; 96372; 99284; J1885; Q9967

== ENCOUNTER 2022-12-30 06:01 | Emergency (ER) | payer BC, SELFPAY ==
[2022-12-30 06:05] VITALS: BP 150/116; PULSE 98; RESP 22; TEMP 36.6; O2SAT 96
--- NOTE | 2022-12-30 06:12 | ED.BACK ---
HPI - Back Pain/Injury General Chief Complaint: Back Pain/Injury Stated Complaint: Lower Back Pain Time Seen by Provider: 12/30/22 06:01 History of Present Illness HPI Narrative: This is a 62-year-old female with past medical history of COPD and fracture of the T12 and L1 vertebra, who presents to the emergency department low back pain radiating to the left leg for the past several hours. She states the pain is rated 10/10, though she is unable to describe the pain. She denies falls, fevers or recent heavy lifting. She denies loss of bowel/bladder control, loss of sensation in the groin, or weakness/numbness of the legs. She has not yet taken anything for the pain. Related Data Home Medications Medication Instructions Recorded Confirmed albuterol sulfate 90 mcg/actuation 2 inh inhalation DIRECTED PRN 10/09/21 12/30/22 aerosol inhaler (Ventolin HFA) Shortness Of Breath Or Wheezing budesonide-formoterol HFA 160 1 inh inhalation BID 10/09/21 12/30/22 mcg-4.5 mcg/actuation aerosol inhaler (Symbicort) fluticasone fur. 100 mcg-umeclid 1 ea inhalation DAILY 10/09/21 12/30/22 62.5 mcg-vilant 25 mcg inhalat.powder (Trelegy Ellipta) gabapentin 300 mg capsule 600 mg PO QID 06/25/22 12/30/22 Allergies Allergy/AdvReac Type Severity Reaction Status Date / Time acetaminophen Allergy Intermediate Hives Verified 09/08/22 13:27 [Tylenol-Codeine] codeine [Tylenol-Codeine] Allergy Intermediate Hives Verified 09/08/22 13:27 Review of Systems Review of Systems: CONSTITUTIONAL: Denies fever, chills, or sweats. CARDIOVASCULAR: Denies chest pain, palpitations, or edema. RESPIRATORY: Denies cough or dyspnea. GASTROINTESTINAL: Denies abdominal pain, nausea, vomiting, or diarrhea. GENITOURINARY: Denies dysuria or hematuria. SKIN: Denies rash or itching. MUSCULOSKELETAL: Back pain, chronic left hand numbness and weakness after left shoulder repair denies joint pain, or myalgia. NEUROLOGIC: Denies headache, numbness, dizziness, or weakness. PSYCHIATRIC: Denies anxiety or depression. [facility] Past Medical History Medical History COPD (chronic obstructive pulmonary disease) Pulmonary emboli Restless legs syndrome Surgical History Surgical History H/O shoulder replacement right Social History Social History Smoking packs per day: 0.5 Smoking cigarettes per day: 10.0 Smoking status: Current every day smoker Tobacco type: cigarettes Second hand tobacco smoke exposure: Yes Alcohol intake: never Substance use: never Spiritual care concerns: No Exam Narrative: GENERAL: Well-appearing, well-nourished, appears uncomfortable HEAD: Normocephalic, atraumatic. EYES: PERRLA and EOMI. NECK: Supple. No adenopathy or masses. No carotid bruits or JVD. No midline spine tenderness, step-off or crepitus to palpation CHEST: Clear to auscultation. No respiratory distress. No wheezes rales or rhonchi HEART: Regular rate and rhythm. No murmur heard. Normal peripheral pulses. ABDOMEN: Soft, nontender, nondistended, normal active bowel sounds. BACK: No midline spine tenderness, step-off or crepitus to palpation. Tender to palpation over the left paraspinal musculature at L4-L5 with muscle spasm. EXTREMITIES: Decreased extension of the fingers of the left hand. Otherwise normal range of motion of all joints. No edema. SKIN: Warm, dry, no rash. NEURO: No focal deficits. Alert and oriented x3. Diminished extension of the fingers of the left hand. Strength otherwise 5/5 in all extremities. Sensation intact bilaterally PSYCH: Normal mood and affect. Course Course Emergency Course: 06:34 - On reevaluation, the patient's pain and blood pressure is improved. Discussed home pain management options including NSAIDs, lidocaine patches, application of heat and musc
[2022-12-30] MEDS: KETOROLAC 30 MG/ML VIAL (*BKC) IM (06:17)
[2022-12-30] MEDS: CYCLOBENZAPRINE HCL 10 MG TABLET (06:21)
[2022-12-30 06:41] VITALS: BP 140/75; PULSE 94; RESP 20; O2SAT 98
== END 2022-12-30 06:42 | disposition home or self-care (01) ==
PROVIDERS: Emergency Provider Preventive Medicine Aerospace Medicine; PCP Family Medicine
DX: M62.830 Muscle spasm of back (principal); M54.50 Low back pain, unspecified
CPT/HCPCS: 96372; 99283; A9270; J1885

== ENCOUNTER 2024-05-30 20:53 | Emergency (ER) | payer OTHER, SELFPAY ==
--- NOTE | ~2024-05-30 | XR_ITS ---
EXAM: XR wrist RT min 3V DATE: 05/30/2024 21:10 HISTORY: pain . COMPARISON: None available. FINDINGS: Decreased mineralization. No fracture or dislocation. No lytic or blastic lesion. Joint sp aces are maintained. No erosion or periosteal change. Wrist joint effusion. Mild soft tissue swelling over the ulnar styloid. IMPRESSION: No acute osseous finding in the right wrist. Joint effusion. Reviewed, dictated and finalized at location [facility].
[2024-05-30 20:53] VITALS: BP 140/89; PULSE 81; RESP 18; TEMP 36.8; O2SAT 92
--- NOTE | 2024-05-30 21:08 | ED.UPPEXIN ---
HPI - Extremity Injury (Upper) General Chief Complaint: Extremity Injury, Upper Stated Complaint: R Wrist Injury Time Seen by Provider: 05/30/24 21:05 Source: patient Mode of arrival: ambulatory Limitations: no limitations History of Present Illness HPI narrative: patient is a 63-year-old female with right wrist pain for the past day. She has no particular injury that she remembers to the right wrist. It is bruised today. MD complaint: injury to: right and wrist Onset (ago): day(s) (1) Other Extremity Injury: Right: wrist Other injuries: none Place: home Severity: mild Severity scale (1-10): 3 Relieving factors: immobilization Exacerbating factors: movement of extremity Context: other ( Unknown injury) Associated symptoms: denies other symptoms Related Data Home Medications Medication Instructions Recorded Confirmed albuterol sulfate 90 mcg/actuation 2 inh inhalation DIRECTED PRN 10/09/21 12/30/22 aerosol inhaler (Ventolin HFA) Shortness Of Breath Or Wheezing budesonide-formoterol HFA 160 1 inh inhalation BID 10/09/21 12/30/22 mcg-4.5 mcg/actuation aerosol inhaler (Symbicort) fluticasone fur. 100 mcg-umeclid 1 ea inhalation DAILY 10/09/21 12/30/22 62.5 mcg-vilant 25 mcg inhalat.powder (Trelegy Ellipta) gabapentin 300 mg capsule 600 mg PO QID 06/25/22 12/30/22 Allergies Allergy/AdvReac Type Severity Reaction Status Date / Time acetaminophen Allergy Intermediate Hives Verified 09/08/22 13:27 [Tylenol-Codeine] codeine [Tylenol-Codeine] Allergy Intermediate Hives Verified 09/08/22 13:27 Review of Systems Review of Systems: All systems reviewed & are unremarkable except as noted in HPI and below Constitutional: Constitutional: Reports no additional constitutional complaints Eyes: Eyes: Reports no additional eye complaints ENT: Reports system reviewed and no additional complaints, except as documented Cardiovascular: Cardiovascular: Reports no additional cardiovascular complaints Respiratory: Respiratory: Reports no additional respiratory complaints Gastrointestinal: Gastrointestinal: Reports no additional gastrointestinal complaints Genitourinary: Genitourinary: Reports no additional female genitourinary complaints Musculoskeletal: Musculoskeletal: Reports no additional musculoskeletal complaints Integumentary/Breasts: Skin/Breast: Reports system reviewed and no additional complaints, except as docu Neurologic: Reports system reviewed and no additional complaints, except as documented Psychiatric: Psychiatric: Reports no additional psychiatric complaints Endocrine: Endocrine: Reports no additional endocrine complaints Hematologic/Lymphatic: Hematologic/Lymphatic: Reports no additional hematologic/lymphatic complaints Allergic/Immunologic: Allergic/Immunologic: Reports no additional allergic/immunologic complaints PMFSH Past Medical History Medical History COPD (chronic obstructive pulmonary disease) Pulmonary emboli Restless legs syndrome Surgical History Surgical History H/O shoulder replacement right Social History Social History Smoking packs per day: 0.5 Smoking cigarettes per day: 10.0 Smoking status: Current every day smoker Tobacco type: cigarettes Second hand tobacco smoke exposure: Yes Alcohol intake: never Substance use: never Spiritual care concerns: No Exam Const: General: healthy appearing Nutritional Appearance: well nourished Orientation/consciousness: patient oriented x3 HENMT: Head: normal to inspection Ears: external ears normal Face/Nose/Sinus: Normal external nose present Eyes: Conjunctivae: conjunctivae normal Pupils: Equal, round and reactive pupils present EOM: EOMs intact bilaterally Neck: Neck: normal visual inspection Chest: Chest palpation & inspe
--- NOTE | 2024-05-30 21:09 | PC.NURSE ---
xray has finished at the bedside
--- NOTE | 2024-05-30 21:27 | PC.NURSE ---
patient is resting on stretcher. waiting on xray results. call light in reach. denies any needs at this time
[2024-05-30 21:59] VITALS: BP 138/82; PULSE 80; RESP 18; O2SAT 99
== END 2024-05-30 21:59 | disposition home or self-care (01) ==
PROVIDERS: Emergency Provider Emergency Medicine; PCP Family Medicine
DX: S63.501A Unspecified sprain of right wrist, initial encounter (principal); J44.9 Chronic obstructive pulmonary disease, unspecified; F17.210 Nicotine dependence, cigarettes, uncomplicated; X58.XXXA Exposure to other specified factors, initial encounter
CPT/HCPCS: 29125; 73110; 99283